=== PATIENT | male | born 1995 | race Caucasian/White ===

== ENCOUNTER 2019-03-17 00:34 | Emergency (ER) | payer BC ==
[~2019-03-17] VITALS: Ht 182.9 cm; Wt 86.2 kg
[2019-03-17 01:10] VITALS: BP 154/103
[2019-03-17] MEDS ORDERED: PRED20TA PO (01:13)
[2019-03-17] MEDS ORDERED: ALBU2.5V8 INH (01:13)
--- NOTE | 2019-03-17 01:14 | PHYS DOC ---
Past Medical History Past Medical History: Asthma Additional Past Medical Histor: CHRONIC SINUS INFECTIONS Past Surgical History: Other Additional Past Surgical Histo: SINOPLASTY, LEFT ELBOW, LEFT FOOT Additional Information: Nonsmoker Alcohol Use: None Drug Use: None Adult General Chief Complaint Chief Complaint: ASTHMA HPI HPI Mr. Auguste is a 23 yo M w/ PMH significant for asthma presents with progressive shortness of breath and wheezing of 1 day with no inciting trigger. Reports rhinorrhea and "mucous draining to my throat causing me to cough." Cough is productive of clear mucous, no blood. Patient states he ran out of his [employer] rol last week and have no refills left. Denies fever/chills, nausea or vomiting, sore throat, or CP. No recent sick contacts. Review of Systems Review of Systems Constitutional: Denies fever or chills Eyes: Denies redness or eye pain HENT: Denies nasal congestion or sore throat Respiratory: Reports shortness of breath, productive cough. Cardiovascular: Denies chest pain or palpitations GI: Denies abdominal pain, nausea, vomiting, diarrhea, constipation, or hematochezia : Denies dysuria or hematuria Musculoskeletal: Denies back pain or joint pain Integument: Denies rash or skin lesions Neurologic: Denies headache, focal weakness or sensory changes Complete systems were reviewed and found to be within normal limits, except as documented in this note. Current Medications Current Medications Current Medications Medications (Trade) Dose Ordered Sig/Jessie Start Time Stop Time Status Last Admin Dose Admin Albuterol/ Ipratropium (Duoneb) 3 ml 1X ONCE 03/17/19 01:15 03/17/19 01:26 DC 03/17/19 01:24 3 ML Dexamethasone (Decadron) 10 mg 1X ONCE 03/17/19 01:30 03/17/19 01:31 DC 03/17/19 01:30 10 MG Allergies Allergies Allergies Coded Allergies Type Severity Reaction Last Updated Verified No Known Drug Allergies 03/17/19 No Physical Exam Physical Exam Constitutional: Well developed, well nourished, no acute distress, non-toxic appearance HENT: Normocephalic, atraumatic, oropharynx moist Eyes: PERRL, EOMI, conjunctiva normal, no discharge Neck: Normal range of motion, no tenderness, supple, no cervical or supraclavicular LAD Cardiovascular: Heart rate normal, regular rhythm Lungs & Thorax: b/l mild wheezing w/o rales or rhonchi Abdomen: Soft, no tenderness, non-distended Skin: Warm, dry, no erythema, no rash Extremities: No tenderness, ROM intact, no edema Neurologic: Alert and oriented X 3, normal motor function, normal sensory function, no focal deficits noted Psychologic: Affect flat, judgement normal Current Patient Data Vital Signs Vital Signs Date Time Temp Pulse Resp B/P (MAP) Pulse Ox O2 Delivery O2 Flow Rate FiO2 03/17/19 01:24 100 Room Air 03/17/19 01:10 76 154/103 (120) 03/17/19 00:35 97.9 16 97.9 EKG EKG [] Radiology/Procedures Radiology/Procedures [] Course & Med Decision Making Course & Med Decision Making Patient presented with shortness of breath and wheezing. Patient improved with Duoneb breathing treatment. Oral steroid provided. Patient given prescription for prednisone and albuterol. Patient provided list of family practitioners and a site inspector to follow-up with. Patient stable for discharge with outpatient follow-up with PCP/pulmonology. Discussed findings and plan with patient, who acknowledges understanding and agreement. Dragon Disclaimer Dragon Disclaimer This electronic medical record was generated, in whole or in part, using a voice recognition dictation system. Departure Departure Impression: Primary Impression: Asthma exacerbation Disposition: HOME, SELF-CARE Condition: STABLE Referrals: JONATHAN BECERRA MD Patient Instructions: Asthma, Adult, [id number] Scripts Prednisone (PREDNISONE) 20 Mg Tablet 2 TAB PO DAILY, #8 TAB Start this dose tomorrow, 03/18/2019. Prov: VICTOR HUGO PRATT DO 03/17/19 Albuterol Sulfate (PROAIR HFA INHALER) 8.5 Gm Hfa.aer.ad 1 PUFF INH PRN Q6HRS PRN for WHEEZING, #1 INHALER 0 Refills Prov: VICTOR HUGO PRATT DO 03/17/19 Problem Qualifiers Primary Impression: Asthma exacerbation Asthma severity: mild Asthma persistence: intermittent Qualified Codes: J45.21 - Mild intermittent asthma with (acute) exacerbation VICTOR HUGO PRATT DO Mar 17, 2019 01:14
[2019-03-17] MEDS ORDERED: IPRATRPIUM/ALBUTEROL 0.5/2.5MG 3 ML NEBU. NEB ONE (01:15)
[2019-03-17] MEDS ORDERED: DEXAMETHASONE 4 MG TABLET PO ONE (01:30)
== END 2019-03-17 01:41 | disposition home or self-care (01) ==
LOC: ER 00:34
DX: J45.21 Mild intermittent asthma with (acute) exacerbation (principal)
CPT/HCPCS: 94640; 99283; J7620; J8540

== ENCOUNTER 2019-07-13 22:02 | Emergency (ER) | payer BC ==
[~2019-07-13] VITALS: Ht 182.9 cm; Wt 90.7 kg
[~2019-07-13 22:02] MED LIST: ALBU2.5V8 INH; PRED20TA PO
[2019-07-13] MEDS ORDERED: ALBUTEROL SULFATE 2.5 MG/3 ML NEBU. ONE (22:22)
[2019-07-13] MEDS ORDERED: ALBUTEROL SULFATE 2.5 MG/3 ML NEBU. CONT NEB ONE (23:00)
[2019-07-13] MEDS ORDERED: methylPREDNISolone SOD SUCC PF 125 MG/2 ML VIAL. IV ONE (23:00)
--- NOTE | 2019-07-13 23:46 | RAD ---
EXAM: AP View of the chest DATE: 07/13/2019 10:22 PM INDICATION: Shortness of breath, asthma COMPARISON: No Prior FINDINGS: The heart is not enlarged. Mediastinal and hilar contours are normal. No focal parenchymal airspace opacity. No pleural effusion or pneumothorax. IMPRESSION: 1. No radiographic evidence for acute cardiopulmonary process. Electronically signed by: Haroon Cook MD (07/13/2019 11:43 PM) [facility] [place]
[2019-07-14 00:13] VITALS: BP 120/69
--- NOTE | 2019-07-14 00:27 | PHYS DOC ---
Past Medical History Past Medical History: Asthma Additional Past Medical Histor: CHRONIC SINUS INFECTIONS, SEASONAL ALLERGIES Past Surgical History: Other Additional Past Surgical Histo: SINOPLASTY, LEFT ELBOW, LEFT FOOT Alcohol Use: None Drug Use: None Adult General Chief Complaint Chief Complaint: SHORTNESS OF BREATH [facility] HPI 23-year-old male presents to the emergency department with complaints of shortness of breath. Patient has underlying history of asthma. He states around 7 PM he noticed increasing shortness of breath, cough, mucus production. He denies any fever, tobacco use. Patient states he uses inhalers at home however no significant improvement. He makes his symptoms worse, nothing makes his symptoms better. Patient denies any chest pain, nausea, vomiting, headache, abdominal pain. Review of Systems Review of Systems Constitutional: Denies fever or chills [] Respiratory: Shortness of breath, cough Cardiovascular: No additional information not addressed in HPI [] GI: Denies abdominal pain, nausea, vomiting, bloody stools or diarrhea [] Musculoskeletal: Denies back pain or joint pain [] Neurologic: Denies headache, focal weakness or sensory changes [] All other systems were reviewed and found to be within normal limits, except as documented in this note. Current Medications Current Medications Current Medications Medications (Trade) Dose Ordered Sig/Jessie Start Time Stop Time Status Last Admin Dose Admin Albuterol Sulfate (Ventolin Neb Soln) 2.5 mg STK-MED ONCE 07/13/19 22:22 07/13/19 22:23 DC Methylprednisolone Sodium Succinate (SOLU-Medrol 125MG VIAL) 125 mg 1X ONCE 07/13/19 23:00 07/13/19 23:01 DC 07/13/19 22:48 125 MG Allergies Allergies Allergies Coded Allergies Type Severity Reaction Last Updated Verified No Known Drug Allergies 03/17/19 No Physical Exam Physical Exam Constitutional: Well developed, well nourished, mild distress, non-toxic appearance. [] HENT: Normocephalic, atraumatic, bilateral external ears normal, oropharynx moist, no oral exudates, nose normal. [] Eyes: PERRLA, EOMI, conjunctiva normal, no discharge. [] Cardiovascular: Tachycardia Lungs & Thorax: Bilateral wheeze, minimal air movement Abdomen: Bowel sounds normal, soft, no tenderness, no masses, no pulsatile masses. [] Skin: Warm, dry, no erythema, no rash. [] Extremities: No tenderness, no edema. [] Neurologic: Alert and oriented X 3, no focal deficits noted. [] Psychologic: Affect normal, judgement normal, mood normal. [] Current Patient Data Vital Signs Vital Signs Date Time Temp Pulse Resp B/P (MAP) Pulse Ox O2 Delivery O2 Flow Rate FiO2 07/14/19 00:13 101 20 120/69 (86) 93 Room Air 07/13/19 22:11 98.5 98.5 EKG EKG [] Radiology/Procedures Radiology/Procedures [] Course & Med Decision Making Course & Med Decision Making Pertinent Labs and Imaging studies reviewed. (See chart for details) []23-year-old male presents to the emergency department with complaints of shortness of breath. Patient has underlying history of asthma. He states around 7 PM he noticed increasing shortness of breath, cough, mucus production. He denies any fever, tobacco use. Patient states he uses inhalers at home however no significant improvement. He makes his symptoms worse, nothing makes his symptoms better. Patient denies any chest pain, nausea, vomiting, headache, abdominal pain. Upon arrival patient received 1 hour long nebulizer treatment, Solumedrol 125 mg Chest xray revealed no evidence of acute consolidation Valuation, patient much improved, states he felt better. Plan for discharge with steroid taper. Return precautions provided Dragon Disclaimer Dragon Disclaimer This electronic medical record was generated, in whole or in part, using a voice recognition dictation system. Departure Departure Impression: Primary Impression: Asthma exacerbation Disposition: 01 HOME, SELF-CARE Condition: IMPROVED Referrals: NO PCP (PCP) Patient Instructions: Asthma, Adult, [id number] Additional Instructions: Recommend follow up with PCP 3 - 5 days Return to the ER with worsening symptoms, intractable pain, fever, altered mental status Tylenol/Motrin as needed for pain Take prednisone as directed - see rx Problem Qualifiers Primary Impression: Asthma exacerbation Asthma severity: moderate Asthma persistence: unspecified Qualified Codes: J45.901 - Unspecified asthma with (acute) exacerbation RANJEET SALMERON MD Jul 14, 2019 00:27
== END 2019-07-14 00:44 | disposition home or self-care (01) ==
LOC: ER 22:02
DX: J45.901 Unspecified asthma with (acute) exacerbation (principal)
CPT/HCPCS: 71045; 94644; 94760; 96374; 99285; J2930; J7613